=== PATIENT | female | born 1990 | race Caucasian/White ===

== ENCOUNTER 2020-12-07 05:33 | Inpatient (IN) ==
--- NOTE | 2020-11-21 14:06 | Anesthesiology Consultation ---
Date of Service November 21, 2020 Assessment & Plan (1) Encounter for pre-operative examination: COVID Status: As of 11/21 nurse assessment, patient denies travel to endemic area, known exposure/sick contacts, or symptoms of COVID19. Preoperative COVID19 testing to be completed on 12/03 at [facility]. 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 initiated History Surgery Operation Date: 12/07/20 07:30 Proposed Procedures p Section in - Jennifer Herbert DO Height/Weight Height: 5 ft 3 in Weight: 79.379 kg Allergies Allergy/AdvReac Type Severity Reaction Status Date / Time No Known Allergies Allergy Verified 11/21/20 12:05 Medications Home Medications Medication Instructions Recorded Confirmed Last Taken prenat.vits,joshua,nch-[id number] 1 tab PO QPM 03/30/20 11/21/20 Unknown Past Medical History Medical History (Updated 11/21/20 @ 14:05 by Craig Lopez) History of chicken pox History of spontaneous Past Family History Family History (Updated 11/21/20 @ 12:08 by Maribel Carreno, ANITA) Uncle Colorectal cancer Grandfather (Paternal) Family history of diabetes mellitus Grandmother (Maternal) Family history of diabetes mellitus Denies family history of Ovarian cancer Breast cancer Past Surgical History Surgical History History of delivery S/P wisdom tooth extraction Social History Smoking Status: Never smoker Do You Dip or Chew Tobacco: No Hx Alcohol Use: Yes Alcohol type: wine alcohol intake frequency: a few times a week Alcohol Intake Frequency Comment: WHEN NOT Hx Substance Use: No
--- NOTE | 2020-12-06 17:39 | History & Physical Report ---
Date of Service December 06, 2020 Assessment & Plan (1) : Plan for repeat section. Reviewed consent in detail, questions answered. History of Present Illness Chief Complaint: repeat section Primary Care Provider: Ronal Yadav 30yo @ 39 0/7, planned repeat section. complicated by: H/o (face presentation)--ltcs by op report (ak) --Plan for repeat at 39 weeks C/S with Piedad on 12/07/20. [facility] TO ASSIST Covid test date 12/03/20 Flu shot given 06/29/20 SB Allergies Allergy/AdvReac Type Severity Reaction Status Date / Time No Known Allergies Allergy Verified 12/06/20 09:25 Home Medications Medication Instructions Recorded Confirmed Type prenat.vits,joshua,[id number] 1 tab PO QPM 03/30/20 12/06/20 History Patient History Medical History History of chicken pox History of spontaneous Surgical History History of delivery S/P wisdom tooth extraction Family History Uncle Colorectal cancer Grandfather (Paternal) Family history of diabetes mellitus Grandmother (Maternal) Family history of diabetes mellitus Denies family history of Ovarian cancer Breast cancer Social History Smoking Status: Never smoker Second Hand Exposure: No; Hx Alcohol Use: Yes Alcohol type: wine Hx Substance Use: No Preferred Language: [place] Communication Ability: Effective Communications Equipment Supervisor Required: No Beliefs That Will Affect Care: None marital status: marital status details: Jesus Bennett (31) [phone] Current Living Situation: Spouse and Family Current Living Situation Comment: lives with spouse, daughter, cat-spouse changing litter current occupational status: employed 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 No s/s chorio or abruption. Skin: no rashes, warm and dry Psychiatric: A+Ox3, euthymic affect Coding Level of Care Code None Diagnoses Z34.90
[2020-12-07] MEDS ORDERED: SODIUM CHLORIDE 0.9% 250 ML IV PRN (05:37)
[2020-12-07] MEDS ORDERED: LACTATED RINGER'S 1,000 ML IV SCH ×2 (05:45→08:51)
[2020-12-07] MEDS ORDERED: CITRIC ACID/SODIUM CITRATE 15 ML UDC PO SCH (06:00)
[2020-12-07] MEDS ORDERED: ceFAZolin 2000MG 2,000 MG/15 ML SYR IV ONE (06:00)
[2020-12-07 06:03] LABS: Basophils # (auto) 0.02 K/uL (0-0.2); Basophils % (auto) 0.3 %; Eosinophils # (auto) 0.08 K/uL (0-0.5); Hematocrit (blood only) 35.8 % (37-47); Hemoglobin 12.8 g/dL (12.0-16.0); Immature Granulocytes # (auto) 0.03 K/uL (0.00-0.02); Immature Granulocytes % (auto) 0.4 %; Lymphocytes # (auto) 1.45 K/uL (1.2-3.4); Mean Corpuscular Hemoglobin 32.3 pg (25-34); Mean Corpuscular Volume 90.4 fL (80-100); Mean Platelet Volume 11.4 fL (7.4-10.4); Monocytes # (auto) 0.51 K/uL (0.11-0.59); Monocytes % (auto) 6.7 %; Neutrophils # (auto) 5.53 K/uL (1.4-6.5); Neutrophils % (auto) 72.6 %; Platelet Count 128 K/uL (130-400); RDW Coefficient of Variation 13.1 % (11.5-14.5); RDW Standard Deviation 43.3 fL (36.4-46.3); Red Blood Count 3.96 M/uL (4.2-5.4); White Blood Count 7.62 K/uL (4.8-10.8)
[2020-12-07 06:08] LABS: Mean Corpuscular Hgb Conc 35.8 g/dL (32-36)
[2020-12-07] MEDS ORDERED: OXYTOCIN 10 UNITS/ML VIAL ONE (06:42)
[2020-12-07] MEDS ORDERED: MoRPHine SULFATE PF 1 MG/ML 10 ML AMP/VIAL ONE (06:42)
[2020-12-07] MEDS ORDERED: fentaNYL citrate 100 MCG/2 ML VIAL ONE ×3 (06:42→08:22)
[2020-12-07] MEDS ORDERED: diphenhydrAMINE 50 MG/ML VIAL IV PRN (07:03)
[2020-12-07] MEDS ORDERED: LACTATED RINGER'S 500 ML IV PRN (07:03)
[2020-12-07] MEDS ORDERED: MoRPHine SULFATE PF 1 MG/ML 10 ML AMP/VIAL INT SPINAL ONE (07:03)
[2020-12-07] MEDS ORDERED: PROMETHAZINE HCL 25 MG in SODIUM CHLORIDE 0.9% 50 ML IV PRN (07:03)
[2020-12-07] MEDS ORDERED: NALOXONE HCL 1 MG in SODIUM CHLORIDE 0.9% 1000ML 1,000 ML IV PRN (07:03)
[2020-12-07] MEDS ORDERED: ONDANSETRON INJ 2 MG/ML 2 ML VIAL IV PRN (07:03)
[2020-12-07] MEDS ORDERED: MoRPHine SULFATE 2 MG/ML CARP IV PRN (07:03)
[2020-12-07] MEDS ORDERED: ePHEDrine sulfate 50 MG/ML AMP IV PRN (07:03)
[2020-12-07] MEDS ORDERED: NALOXONE HCL 0.08 MG in SYRINGE 1.8 ML IV PRN (07:03)
[2020-12-07] MEDS ORDERED: NALOXONE HCL 0.4 MG/1 ML VIAL/CARP IV PRN (07:03)
[2020-12-07] MEDS ORDERED: DC INTRASPINAL MORPHINE SCH (07:15)
[2020-12-07] MEDS ORDERED: NO NARCOTICS OR SEDATIVES SCH (07:15)
[2020-12-07] MEDS ORDERED: SODIUM CHLORIDE 0.9% 1000ML 1,000 ML IV SCH (07:15)
--- NOTE | 2020-12-07 07:28 | History & Physical Bridge Note ---
Date of Service December 07, 2020 History & Physical Bridge Note I have examined the patient, reviewed the History & Physical and in the interval since the performance of the History & Physical I have noted the following changes of clinical significance: no changes noted
[2020-12-07] MEDS ORDERED: PHENYLEPHRINE 100MCG/ML 5ML SYR ONE (08:09)
[2020-12-07] MEDS ORDERED: ePHEDrine sulfate 50 MG/ML SYR ONE (08:09)
[2020-12-07 08:22] LABS: Base Excess Cord Arterial Bld -0.4 mEq/L (-9-1.8); CO2 Cord Arterial Blood 61 mmHg (39.1-73.5); HCO3 Cord Arterial Blood 28 mmol/L (19.7-28.5); PO2 Cord Arterial Blood 12 mmHg (4.1-31.7); pH Cord Arterial Blood 7.28 (7.1-7.38)
[2020-12-07 08:28] LABS: Base Excess Cord Venous Blood -2.2 mEq/L (-7.7-1.9); Cord Venous Blood HCO3 22 mmol/L (18.4-26.8); Cord Venous Blood PCO2 36 mmHg (30.4-57.2); Cord Venous Blood PO2 35 mmHg (14.1-43.3)
[2020-12-07 08:29] LABS: Oxygen Sat Cord Arterial Blood < 60.0 % (<60)
--- NOTE | 2020-12-07 08:40 | Operative Report ---
PG Post Operative Report Pre & Post Diagnosis Operation Date: 12/07/20 07:30 Pre: History of section, desire for repeat Post: same I identified the patient and participated in the time-out.: Yes Procedure Operation Date: 12/07/20 07:30 Repeat low transverse section Surgeon Jennifer Herbert DO Slaughterer Religious Ritual Lee Schreiber MD Estimated Blood Loss 600 Findings Consistent with Post-Op Diagnosis Viable male , Apgars 8/9, Weight pending - please see nursery records. Normal appearing uterus, tubes, ovaries. Specimens Placenta, cord blood, cord gas. Drains Armstrong clear yellow Anesthesia Type Spinal Complications none Disposition Accompanied Patient To Recovery: No Disposition: L&D Indications 30yo @ 39 0/7, history of section, desire for repeat Description of Procedure The patient was seen in her labor and delivery room, risks benefits and alternatives to surgery were reviewed. Informed consent obtained. Questions were answered. She was taken to the operating room, spinal anesthesia was administered. She was then prepared and draped in the usual sterile fashion in the supine position with a leftward tilt. Timeout was confirmed. A Pfannenstiel skin incision was made with a scalpel, and carried through to the underlying layer of fascia. Fascia was nicked at midline, and this incision was extended bilaterally. The superior aspect of the fascial incision was grasped with Kari clamps x2, elevated off the underlying rectus abdominis muscles, and dissected sharply and bluntly. In similar fashion, the inferior aspect of the fascial incision was dissected. The rectus abdominis muscles were , and the peritoneum was entered bluntly digitally. This was extended bilaterally. The bladder flap was taken down carefully using Metzenbaum scissors. Using a new scalpel, a low transverse uterine incision was created. Clear amniotic fluid noted. The infant was delivered from a cephalic presentation. The head delivered, followed by shoulders and body. Spontaneous cry on the field. The cord was doubly clamped and cut, and the infant was handed off to the waiting automatic vulcanizing operator. A segment was retained for cord gases. Cord blood was obtained. The placenta was delivered spontaneously intact. The uterus was exteriorized, and cleared of all clots and debris. The hysterotomy incision was reapproximated using 0 Vicryl in a running locked stitch. A second layer of the same suture was used to imbricate the incision. Posterior uterus was evaluated and normal. The uterus was returned to the abdomen, and gutters were cleared of clots and debris. Dtynsz-oq-nhydv sutures were used with 2-0 Vicryl to obtain hemostasis at the uterine incision. Surgifoam was used along the incision site. Excellent hemostasis was observed. The fascial incision was reapproximated using 0 Vicryl in a running stitch. The subcutaneous tissue was irrigated, and reapproximated using 2-0 plain gut in a running stitch. The skin was reapproximated using 4-0 Vicryl in a running subcuticular stitch. Steri-Strips and a bandage were applied. The patient tolerated the procedure well, and will be taken to the recovery area in stable and good condition. I attest to the content of the Intraoperative Record and any orders documented therein. Any exceptions are noted below.
[2020-12-07] MEDS ORDERED: BENZOCAINE 20% AER SPR 82.5 GM CAN EXT PRN (08:51)
[2020-12-07] MEDS ORDERED: DIPHTHERIA/TETANUS/PERTUSSIS 0.5 ML SYR/VIAL IM ONE (08:51)
[2020-12-07] MEDS ORDERED: SENNA 8.6 MG TAB PO PRN (08:51)
[2020-12-07] MEDS ORDERED: MAGNESIUM HYDROXIDE SUSP 30 ML UDC PO PRN (08:51)
[2020-12-07] MEDS ORDERED: SUPERCREAM 0.870% 15 GM JAR EXT PRN (08:51)
[2020-12-07] MEDS ORDERED: HYDROCORTISONE ACETATE 25 MG SUPP PR PRN (08:51)
[2020-12-07] MEDS ORDERED: GELATIN SPONGE SZ 100 ONE (08:56)
[2020-12-07] MEDS: KETOROLAC 30 MG/ML VIAL IV PRN ×3 (08:56→20:11)
--- NOTE | 2020-12-07 09:37 | Anesthesiology Progress Note ---
Date of Service December 07, 2020 Anesthesia Post Procedure Vital Signs Vital Signs: Temp Pulse Resp BP Pulse Ox 12/07/20 09:35 78 99 12/07/20 09:30 90 94 12/07/20 09:26 78 125/59 L 12/07/20 09:25 82 98 12/07/20 09:20 80 99 12/07/20 09:16 93 H 129/70 12/07/20 09:15 94 H 98 12/07/20 09:10 100 H 99 12/07/20 09:06 98 H 127/62 12/07/20 09:05 94 H 16 99 12/07/20 09:00 89 99 12/07/20 08:56 93 H 132/69 12/07/20 08:55 89 16 99 12/07/20 08:50 96 H 98 12/07/20 08:46 89 132/68 12/07/20 08:45 36.5 C 101 H 16 100 12/07/20 07:14 18 12/07/20 05:43 37.2 C 85 18 142/79 H 12/07/20 05:42 85 142/79 H Pain Intensity Abdomen: Pain Intensity: 4 Transfer of Care Handoff Completed per policy Notes Mental Status: alert / awake / arousable and participated in evaluation Patient Amnestic to Procedure: Yes Nausea / Vomiting: adequately controlled Pain: adequately controlled Airway Patency, RR, SpO2: stable & adequate BP & HR: stable & adequate Hydration State: stable & adequate Neuraxial Anesthesia: was administered and sensory block is resolving Anesthetic Complications: no major complications apparent and Pt Satisfied with anesthetic care
[2020-12-07] MEDS: OXYTOCIN 20 UNITS in LACTATED RINGER'S 1,000 ML IV SCH ×2 (10:08→14:19)
[2020-12-07] MEDS: SIMETHICONE 80 MG CHEW PO SCH ×3 (12:38→20:11)
[2020-12-07] MEDS ORDERED: METHYLERGONOVINE MALEATE 0.2 MG/ML AMP IM STA (13:17)
[2020-12-07] MEDS ORDERED: METHYLERGONOVINE MALEATE 0.2 MG/ML AMP ONE (13:19)
--- NOTE | 2020-12-07 13:21 | Obstetrical Progress Note ---
Date of Service December 07, 2020 Assessment & Plan Admission and Anticipated Discharge Date Admission Date: December 07, 2020 Subjective Called to room by RN for vaginal bleeding. Weighed chux pad under patient was 360cc dark blood and clots. I performed exam - fundus firm and 2cm above umbilicus. Vaginal exam reveals cervix approx 2cm dilated, I expressed 385cc (weighed) of dark red clots during exam. Fundus remains firm, but after exam/expression of clots, fundus was at umbilicus. No further bleeding from vagina. Patient denies feeling symptoms of weakness/dizziness. Vitals stable. Will continue with current IV fluids with pitocin, will also give one dose methergine. Will check H/H at this time. Results & Data ([facility]) Vital Signs (Past 12 Hours) Vital Signs Temp Pulse Pulse Pulse Resp BP BP 12/07/20 12:15 36.7 C 83 18 12/07/20 11:15 37 C 95 H 16 114/71 12/07/20 10:46 83 115/72 12/07/20 10:45 36.9 C 18 12/07/20 10:41 87 12/07/20 10:36 86 116/73 12/07/20 10:31 83 12/07/20 10:26 82 113/71 12/07/20 10:21 82 12/07/20 10:16 81 12/07/20 10:15 74 12/07/20 10:10 99 H 12/07/20 10:06 77 123/71 12/07/20 10:05 91 H 12/07/20 10:00 89 12/07/20 09:56 83 130/75 12/07/20 09:55 82 12/07/20 09:53 76 12/07/20 09:50 76 12/07/20 09:46 85 130/72 12/07/20 09:45 84 12/07/20 09:40 79 12/07/20 09:36 79 129/69 12/07/20 09:35 78 18 12/07/20 09:30 90 12/07/20 09:26 78 125/59 L 12/07/20 09:25 82 16 12/07/20 09:20 80 12/07/20 09:16 93 H 129/70 12/07/20 09:15 94 H 18 12/07/20 09:10 100 H 12/07/20 09:06 98 H 127/62 12/07/20 09:05 94 H 16 12/07/20 09:00 89 12/07/20 08:56 93 H 132/69 12/07/20 08:55 89 16 12/07/20 08:50 96 H 12/07/20 08:46 89 132/68 12/07/20 08:45 36.5 C 101 H 16 12/07/20 07:14 18 12/07/20 05:43 37.2 C 85 18 142/79 H 12/07/20 05:42 85 142/79 H BP Pulse Ox 12/07/20 12:15 118/71 97 12/07/20 11:15 96 12/07/20 10:46 12/07/20 10:45 12/07/20 10:41 97 12/07/20 10:36 97 12/07/20 10:31 97 12/07/20 10:26 12/07/20 10:21 97 12/07/20 10:16 97 12/07/20 10:15 89 L 12/07/20 10:10 98 12/07/20 10:06 12/07/20 10:05 97 12/07/20 10:00 98 12/07/20 09:56 12/07/20 09:55 97 12/07/20 09:53 92 12/07/20 09:50 98 12/07/20 09:46 86 L 12/07/20 09:45 99 12/07/20 09:40 99 12/07/20 09:36 12/07/20 09:35 99 12/07/20 09:30 94 12/07/20 09:26 12/07/20 09:25 98 12/07/20 09:20 99 12/07/20 09:16 12/07/20 09:15 98 12/07/20 09:10 99 12/07/20 09:06 12/07/20 09:05 99 12/07/20 09:00 99 12/07/20 08:56 12/07/20 08:55 99 12/07/20 08:50 98 12/07/20 08:46 12/07/20 08:45 100 12/07/20 07:14 12/07/20 05:43 12/07/20 05:42 PG Care Time/CCT Total # of Minutes Spent Total Time Spent with Patient: Total time spent is greater than 50% in coordination of care (as documented) at patient's floor/unit and/or counseling patient: Coding Level of Care Code None
[2020-12-07 14:20] LABS: Hematocrit (blood only) 32.6 % (37-47); Hemoglobin 11.2 g/dL (12.0-16.0)
[2020-12-07 20:58] LABS: Hematocrit (blood only) 30.3 % (37-47); Hemoglobin 10.5 g/dL (12.0-16.0); Mean Corpuscular Hemoglobin 31.6 pg (25-34); Mean Corpuscular Hgb Conc 34.7 g/dL (32-36); Mean Corpuscular Volume 91.3 fL (80-100); Mean Platelet Volume 11.5 fL (7.4-10.4); Platelet Count 102 K/uL (130-400); RDW Coefficient of Variation 13.1 % (11.5-14.5); RDW Standard Deviation 43.2 fL (36.4-46.3); Red Blood Count 3.32 M/uL (4.2-5.4); White Blood Count 8.91 K/uL (4.8-10.8)
[2020-12-07] MEDS: DOCUSATE SODIUM 100 MG CAP PO SCH (22:38)
[2020-12-08] MEDS ORDERED: diphenhydrAMINE 50 MG/ML VIAL IV PRN (01:05)
[2020-12-08] MEDS ORDERED: PROMETHAZINE HCL 25 MG in SODIUM CHLORIDE 0.9% 50 ML IV PRN (01:05)
[2020-12-08] MEDS ORDERED: ONDANSETRON INJ 2 MG/ML 2 ML VIAL IV PRN (01:05)
[2020-12-08] MEDS ORDERED: MEPERIDINE HCL 50 MG/ML CARP IV PRN (01:05)
[2020-12-08] MEDS ORDERED: KETOROLAC 30 MG/ML VIAL IV PRN (01:05)
[2020-12-08] MEDS ORDERED: diphenhydrAMINE Capsule 25 MG CAP PO PRN (01:05)
[2020-12-08] MEDS: oxyCODONE/ACETAMINOPHEN 5mg/325mg TAB PO PRN ×6 (01:42→22:49)
[2020-12-08] MEDS: IBUPROFEN 600 MG TAB PO PRN ×6 (01:43→22:49)
[2020-12-08 06:33] LABS: Basophils # (auto) 0.01 K/uL (0-0.2); Basophils % (auto) 0.1 %; Eosinophils # (auto) 0.03 K/uL (0-0.5); Eosinophils % (auto) 0.3 %; Hematocrit (blood only) 30.1 % (37-47); Hemoglobin 10.4 g/dL (12.0-16.0); Immature Granulocytes # (auto) 0.02 K/uL (0.00-0.02); Immature Granulocytes % (auto) 0.2 %; Lymphocytes # (auto) 0.87 K/uL (1.2-3.4); Lymphocytes % (auto) 9.5 %; Mean Corpuscular Hemoglobin 31.5 pg (25-34); Mean Corpuscular Hgb Conc 34.6 g/dL (32-36); Mean Corpuscular Volume 91.2 fL (80-100); Mean Platelet Volume 11.4 fL (7.4-10.4); Monocytes # (auto) 0.58 K/uL (0.11-0.59); Monocytes % (auto) 6.4 %; Neutrophils % (auto) 83.5 %; Platelet Count 122 K/uL (130-400); RDW Coefficient of Variation 13.3 % (11.5-14.5); RDW Standard Deviation 43.8 fL (36.4-46.3); White Blood Count 9.11 K/uL (4.8-10.8)
--- NOTE | 2020-12-08 07:46 | Obstetrical Progress Note ---
Date of Service December 08, 2020 Assessment & Plan (1) : POD#1 s/p repeat . Doing well. Plan today for increase diet, ambulation. Use SCDs while in bed. Subjective Ambulation: ambulating normally Voiding: no voiding problems Diet Tolerance:: regular diet Lochia:: Moderate Feeding Type:: breast feeding PPD#1 doing well. No further bleeding. Hgb stable. Feeling much better today. Advancing diet. Armstrong out, has voided. Feels gas moving in belly. Review of Systems All systems reviewed & are unremarkable except as noted in HPI & below Physical Exam Incision CDI. Constitutional WD/WN, vitals as above no acute distress Respiratory normal respiratory effort Cardiovascular Rate/Rhythm: regular rate and regular rhythm Gastrointestinal (Abdomen) Inspection/Auscultation: abdomen normal to inspection; abdomen not distended Percussion/Palpation: abdomen soft Genitourinary OB Exam Abdomen: + fundal height Fundus: + firm; not tender Results & Data ([facility]) Vital Signs (Past 12 Hours) Vital Signs Temp Pulse Resp BP Pulse Ox 12/08/20 04:30 37.1 C 90 16 118/64 99 12/08/20 01:00 18 99 12/08/20 00:00 18 98 12/07/20 23:30 37.0 C 95 H 18 126/74 99 12/07/20 22:58 16 99 12/07/20 21:00 16 99 12/07/20 20:00 36.9 C 93 H 18 126/74 99
[2020-12-08] MEDS: SIMETHICONE 80 MG CHEW PO SCH ×4 (08:12→21:01)
[2020-12-08] MEDS: FERROUS SULFATE 325 MG TAB PO SCH (08:12)
[2020-12-08] MEDS: DOCUSATE SODIUM 100 MG CAP PO SCH ×2 (08:12→21:01)
[2020-12-08] MEDS: PRENATAL VITAMIN 1 TAB PO SCH (08:12)
--- NOTE | 2020-12-08 12:47 | Anesthesiology Progress Note ---
Date of Service December 08, 2020 Anesthesia Post Procedure Vital Signs Vital Signs: Temp Pulse Resp BP Pulse Ox 12/08/20 08:15 37 C 90 18 108/70 97 12/08/20 04:30 37.1 C 90 16 118/64 99 12/08/20 01:00 18 99 12/08/20 00:00 18 98 12/07/20 23:30 37.0 C 95 H 18 126/74 99 12/07/20 22:58 16 99 12/07/20 21:00 16 99 12/07/20 20:00 36.9 C 93 H 18 126/74 99 12/07/20 19:00 18 99 12/07/20 17:00 18 99 12/07/20 16:51 16 97 12/07/20 15:12 36.8 C 77 16 132/77 98 12/07/20 15:00 18 98 12/07/20 14:00 18 98 12/07/20 13:37 37 C 86 16 120/70 99 12/07/20 13:11 81 118/68 12/07/20 13:05 89 16 131/71 99 12/07/20 13:00 36.8 C 75 18 132/79 98 Pain Intensity Abdomen: Pain Intensity: 1 Transfer of Care Handoff Completed per policy Notes Mental Status: alert / awake / arousable and participated in evaluation Nausea / Vomiting: adequately controlled Pain: adequately controlled Airway Patency, RR, SpO2: stable & adequate BP & HR: stable & adequate Hydration State: stable & adequate Neuraxial Anesthesia: was administered and sensory block resolved Anesthetic Complications: no major complications apparent and Pt Satisfied with anesthetic care Notes: Patient denies headache this morning. Has been up walking without weakness or residual numbness. Patient encouraged to contact anesthesia for any concerns or new headache
[2020-12-08] MEDS ORDERED: bisacodyL 5 MG TABEC PO SCH (20:00)
[2020-12-09] MEDS: IBUPROFEN 600 MG TAB PO PRN ×3 (06:29→14:54)
[2020-12-09] MEDS: oxyCODONE/ACETAMINOPHEN 5mg/325mg TAB PO PRN ×3 (06:30→14:53)
[2020-12-09 06:48] LABS: Hematocrit (blood only) 30.3 % (37-47); Hemoglobin 10.3 g/dL (12.0-16.0)
--- NOTE | 2020-12-09 07:41 | Obstetrical Progress Note ---
Date of Service December 09, 2020 Assessment & Plan (1) Previous delivery affecting , antepartum: patient doing well. Patient desires d/c. Instructions given. f/u 6 weeks. Call with concerns. Day #:: 2 Subjective Ambulation: ambulating normally Voiding: no voiding problems Passing Gas:: Yes Diet Tolerance:: regular diet Lochia:: Small Feeding Type:: breast feeding Physical Exam Constitutional WD/WN, vitals as above Neck trachea midline, no thyromegaly Cardiovascular Extremities: + edema (trace); no calf tenderness Gastrointestinal (Abdomen) sof,t nt, nd, ff/nt at u incision c/d/i Psychiatric A+Ox3, euthymic affect Results & Data ([facility]) Vital Signs (Past 12 Hours) Vital Signs Temp Pulse Resp BP Pulse Ox 12/08/20 23:46 37.0 C 92 H 16 115/77 100
[2020-12-09] MEDS: DOCUSATE SODIUM 100 MG CAP PO SCH (07:56)
[2020-12-09] MEDS: SIMETHICONE 80 MG CHEW PO SCH (07:56)
[2020-12-09] MEDS: PRENATAL VITAMIN 1 TAB PO SCH (07:56)
[2020-12-09] MEDS: FERROUS SULFATE 325 MG TAB PO SCH (07:57)
[2020-12-09] MEDS ORDERED: bisacodyL 10 MG SUPP PR PRN (08:27)
--- NOTE | 2020-12-17 09:06 | Discharge Summary ---
Date of Service December 17, 2020 Admission HPI Per Admitting Provider 30yo @ 39 0/7, planned repeat section. complicated by: H/o (face presentation)--ltcs by op report (ak) --Plan for repeat at 39 weeks C/S with Piedad on 12/07/20. [place] TO ASSIST Covid test date 12/03/20 Flu shot given 06/29/20 SB Discharge Data Consultations 12/07/20 05:33 Consult Anesthesiology Stat Procedures Performed Operation Date: 12/07/20 07:30 Actual Procedures p Section in LD; delivery of live male at 0758 - Jennifer Isa Herbert, Hospital Course (1) Previous delivery affecting , antepartum: Patient admitted for repeat , routine recovery, discharged home. Followup in office 6w. Coding Level of Care Code None Diagnoses Previous delivery affecting , antepartum O34.219
== END 2020-12-09 13:05 | disposition home or self-care (01) | DRG 788 ==
LOC: 4S1 05:33 → EDSTATUS 07:30 → 4S2 11:00